=== PATIENT | male | born 1940 | race Caucasian/White ===

== ENCOUNTER 2017-04-09 18:02 | Emergency (ER) | payer MEDICARE, BC ==
--- NOTE | 2017-04-09 18:36 | EDM.PDOC ---
ED HPI GENERAL MEDICAL PROBLEM - General Chief Complaint: General Stated Complaint: contact with mummified bat Time Seen by Provider: 04/09/17 18:15 Source of Information: Reports: Patient, Family History Limitations: Reports: No Limitations - History of Present Illness INITIAL COMMENTS - FREE TEXT/NARRATIVE: Ze was cleaning out his garage this pm and noticed a dark furry object at the bottom of a box. Inspection revealed a mummified bat which was handled with his bare R hand. He was concerned he might contract an illness like rabies from the mammal. There was no break in the skin. His tetanus vax status is current. - Related Data Allergies Allergy/AdvReac Type Severity Reaction Status Date / Time prednisone Allergy Insomnia Verified 04/09/17 18:24 Home Meds: Home Meds Multivitamin [Multi-Vitamin Daily] 1 tab PO DAILY 10/01/13 [History] Silodosin [Rapaflo] 4 mg PO DAILY 04/09/17 [History] Social & Family History - Tobacco Use Years of Tobacco use: 30 - Alcohol Use Days Per Week of Alcohol Use: 0 - Recreational Drug Use Recreational Drug Use: No ED ROS GENERAL - Review of Systems Review Of Systems: ROS reveals no pertinent complaints other than HPI. ED EXAM, GENERAL - Physical Exam Exam: See Below Exam Limited By: No Limitations General Appearance: Alert, WD/WN, No Apparent Distress Head: Normocephalic Neck: Normal Inspection, Supple, Non-Tender Respiratory/Chest: Lungs Clear Cardiovascular: Regular Rate, Rhythm Back Exam: Normal Inspection Extremities: Normal Inspection, Normal Range of Motion, Non-Tender Neurological: Alert, Oriented, CN II-XII Intact, No Motor/Sensory Deficits Psychiatric: Normal Affect, Normal Mood Skin Exam: Warm, Dry, Intact Lymphatic: No Adenopathy Course - Vital Signs Text/Narrative:: No meds were dispensed during the [facility] ED visit. Departure - Departure Time of Disposition: 18:35 Disposition: Home, Self-Care 01 Condition: Good Clinical Impression: Contact with mammal - Discharge Information Referrals: Ze Garrido MD [Primary Care Provider] - - Problem List & Annotations (1) Contact with mammal SNOMED Code(s): 09260152 Code(s): W55.89XA - OTHER CONTACT WITH OTHER MAMMALS, INITIAL ENCOUNTER Status: Acute Annotation/Comment:: Reassurance given. No managment anticipated. - Problem List Review Problem List Initiated/Reviewed/Updated: Yes - Assessment/Plan Plan: Follow up with PCP if needed.
== END 2017-04-09 18:45 | disposition home or self-care (01) ==
LOC: FB.ED 18:02
DX: Z20.3 Contact with and (suspected) exposure to rabies (principal); Z79.899 Other long term (current) drug therapy; Z88.8 Allergy status to other drugs, medicaments and biological substances; W55.89XA Other contact with other mammals, initial encounter
CPT/HCPCS: 99281; 99282

== ENCOUNTER 2017-08-28 10:25 | Day surgery (SDC) | payer MEDICARE, BC ==
[2017-08-28] MEDS ORDERED: Sodium Chloride 0.9% 10 ML Syringe FLUSH PRN (10:30)
[2017-08-28] MEDS ORDERED: Propofol 200 MG/20 ML SDV IV ONE (13:54)
[2017-08-28] MEDS ORDERED: Lidocaine 1% 30 ML SDV INJECT ONE (13:54)
--- NOTE | 2017-08-29 10:09 | OR ---
DATE OF OPERATION: 08/28/2017 SURGEON: Memo Linder MD PREOPERATIVE DIAGNOSIS: Cataract, right eye. POSTOPERATIVE DIAGNOSIS: Cataract, right eye. OPERATION PERFORMED: Phacoemulsification of cataract right eye with placement of an Al, model Z9002, 19.0 diopter, foldable, posterior chamber intraocular lens. DESCRIPTION OF PROCEDURE: Peribulbar anesthetic was performed using a mixture of 2% lidocaine with Wydase. The patient was prepped and draped in the usual fashion. A 3 mm fornix based conjunctival flap was performed at the 10 o'clock position. Hemostasis was obtained using diathermy, and a 2.8 mm grooved near clear corneal incision was then made. A stab incision was made into the anterior chamber at the 12 o'clock position and a second stab wound incision was made underlying the grooved near clear corneal incision. Viscoat was instilled into the anterior chamber, and a continuous tear capsulotomy was performed. Hydrodissection was accomplished with balanced salt solution, and the nucleus was removed in a divide and conquer fashion. The remaining cortical material was removed with the irrigation and aspiration unit. Viscoat was instilled into the anterior chamber, and an Al, model Z9002, 19.0 diopter, foldable, posterior chamber intraocular lens was placed into the capsular bag, the haptics being positioned at the 3 and 9 o'clock positions. The residual Viscoat was removed from the anterior chamber and the anterior chamber reformed with balanced salt solution. The wound was checked and noted to be watertight. The conjunctiva was secured in its original position with diathermy. Alphagan and Maxitrol Ointment were then placed into the patient's eye. The patient tolerated the procedure well and it was without complication. Elapsed phacoemulsification time was 25 seconds. Postoperative instructions as related to activities as well as medications were reviewed with the patient. The patient was instructed to return to see me on the day following surgery for the first postoperative check. The patient was also instructed to contact me prior to that time if he were to have any problems. ADDENDUM: Because of the patient's history of use of Flomax, 0.3 mL of a mixture of phenylephrine, lidocaine, balanced salt solution were instilled into the anterior chamber in regard to ensuring adequate pupillary dilation throughout the course of the surgery. This did help to maintain pupillary dilation. /[id number] DEG/MODL CC: JOHN FERNANDEZ MD
== END 2017-08-28 15:25 | disposition home or self-care (01) ==
LOC: FB.SDS 10:25
PROVIDERS: ATTEND Ophthalmology
DX: H25.811 Combined forms of age-related cataract, right eye (principal); F41.9 Anxiety disorder, unspecified; E78.00 Pure hypercholesterolemia, unspecified; Z79.899 Other long term (current) drug therapy; K21.9 Gastro-esophageal reflux disease without esophagitis; N40.0 Benign prostatic hyperplasia without lower urinary tract symptoms; Z88.8 Allergy status to other drugs, medicaments and biological substances; Z98.42 Cataract extraction status, left eye; Z96.1 Presence of intraocular lens
CPT/HCPCS: 00142; 66984; C1780; J2704; J7050